=== PATIENT | male | born 1995 | race Hispanic/Latino ===

== ENCOUNTER 2021-08-28 21:42 | Emergency (ER) | payer SELFPAY | END 2021-08-28 23:02 | disposition home or self-care (01) | LOC: CSHERS 21:42 | DX: K02.9 Dental caries, unspecified (principal); K03.81 Cracked tooth | CPT/HCPCS: 99282 ==

== ENCOUNTER 2022-07-24 21:04 | Emergency (ER) | payer SELFPAY ==
[2022-07-24 22:39] LABS: Bilirubin Neg (Negative); Blood, Urine Negative (Negative); Clarity Clear (Clear); Glucose, Urine (Dipstick) Normal (Negative); Ketone, Urine Negative (Negative); Leukocyte Negative (Negative); Nitrite Negative (Negative); Protein, Urine (Dipstick) Negative (Neg-Trace); Urobilinogen Normal mg/dL (Less than 2)
[2022-07-24 23:17] LABS: Glucose 103 mg/dL (70-105)
== END 2022-07-24 23:06 | disposition home or self-care (01) ==
LOC: CSHERS 21:04
DX: B37.42 Candidal balanitis (principal)
CPT/HCPCS: 36415; 36416; 81003; 82947; 99283